=== PATIENT | female | born 1950 | race Caucasian/White ===

== ENCOUNTER 2022-09-15 10:12 | Inpatient (IN) ==
[2022-09-15] MEDS ORDERED: HYDROmorphone 1 MG/1 ML SYRINGE IV ONE ×2 (10:22→10:31)
[2022-09-15] MEDS ORDERED: Lactated Ringers 1000 ml BAG 1,000 ML IV ONE (10:33)
[2022-09-15] MEDS ORDERED: HYDROmorphone 0.5 MG/0.5 ML SYRINGE IV SLOW PU PRN (13:05)
[2022-09-15] MEDS ORDERED: hydrALAZINE 20 mg/ml 1 ML Vial IV IV SLOW PU ONE (13:06)
[2022-09-15 14:02] LABS: ABS Lymphocytes 1.5 10^3/ul (1.0-4.8); ABS Monocytes 0.6 10^3/ul (0-0.8); Eosinophil % 0.2 %; Hematocrit 39 % (35-47); Hemoglobin 12.8 g/dL (12.0-16.0); Lymphocyte % 16.3 %; Mean Corpuscular HGB Conc 33 g/dL (31-36); Mean Corpuscular Hemoglobin 30 pg (27-31); Mean Corpuscular Volume 91 fL (80-97); Mean Platelet Volume 7.3 fL (7.4-10.4); Platelet Count 378 10^3/uL (150-450); Red Blood Count 4.32 10^6 /uL (3.70-4.87); Red Cell Distribution Width 14 % (10-15); White Blood Count 9.1 10^3/uL (3.5-10.8)
[2022-09-15 14:11] LABS: INR 1.05 (0.88-1.18)
[2022-09-15 14:33] LABS: Albumin/Globulin Ratio 1.6 (1-3); Calcium 9.3 mg/dL (8.6-10.3); Creatinine, Serum 0.67 mg/dL (0.51-0.95); Globulin 2.5 g/dL (2-4); Potassium 3.8 mmol/L (3.5-5.0); Total Bilirubin 0.4 mg/dL (0.2-1.0); Total Protein 6.5 g/dL (6.4-8.9); eGFR CKD-EPI 91.7 (>60)
[2022-09-15] MEDS ORDERED: Ondansetron 4 mg VIAL 2 MG/ML 2 ml VIAL IV ONE (14:55)
[2022-09-15] MEDS ORDERED: KCL 10 MEQ/50 ML IVPREMIX 10 MEQ/50 ML BAG IV SCH (15:00)
[2022-09-15] MEDS ORDERED: Labetalol IV 5 MG/ML 20 ml VIAL IV PUSH PRN (15:02)
[2022-09-15] MEDS: Nicotine PATCH 7 MG/24 HR PATCH TRANSDERM SCH (15:05)
[2022-09-15] MEDS ORDERED: Dexamethasone IV 4 MG/ML VIAL 1 ml VIAL ONE ×2 (15:17→17:10)
[2022-09-15] MEDS ORDERED: Rocuronium 50 mg VIAL 10 mg/ml 5 ml VIAL (50 mg) ONE (15:17)
[2022-09-15] MEDS ORDERED: Propofol 10 MG/ML 20 ML BTL ONE (15:17)
[2022-09-15] MEDS ORDERED: Ondansetron 4 mg VIAL 2 MG/ML 2 ml VIAL ONE ×2 (15:17→16:07)
[2022-09-15] MEDS ORDERED: Lidocaine 2% PF 5 ML VIAL ONE (15:17)
[2022-09-15] MEDS ORDERED: Acetaminophen IV 1 GM/100ML 1,000 MG/100 ML BAG IV ONE (15:17)
[2022-09-15] MEDS ORDERED: fentaNYL 100 mcg/2 ml 50 MCG/ML VIAL ONE (15:32)
[2022-09-15] MEDS ORDERED: Midazolam 2 mg/2 ml VIAL 1 mg/ml 2 ml VIAL (2 mg) ONE (15:33)
[2022-09-15] MEDS ORDERED: ceFAZolin 2 GM in NS PREMIX 2 GM/100 ML BAG IVPB ONE (15:58)
[2022-09-15] MEDS ORDERED: HYDROmorphone 1 MG/1 ML SYRINGE IV SLOW PU PRN (16:00)
[2022-09-15] MEDS ORDERED: Famotidine IV 10 MG/ML 2 ml VIAL (20 mg) ONE (16:07)
[2022-09-15] MEDS ORDERED: Metoclopramide 5 MG/ML VIAL (10 mg) ONE (16:07)
[2022-09-15] MEDS ORDERED: Scopolamine 1 mg/72hr PATCH ONE (16:07)
[2022-09-15] MEDS ORDERED: Phenylephrine IV 10 MG/ML 1 ml VIAL ONE (16:46)
[2022-09-15] MEDS ORDERED: HYDROmorphone 0.5 MG/0.5 ML SYRINGE ONE ×2 (16:59→17:09)
[2022-09-15] MEDS ORDERED: Naloxone 0.4 mg VIAL 0.4 mg/ml 1 ml VIAL IV PRN (18:13)
[2022-09-15] MEDS ORDERED: fentaNYL 100 mcg/2 ml 50 MCG/ML VIAL IV PRN (18:13)
[2022-09-15] MEDS ORDERED: Prochlorperazine 5 mg/ml 2 ml VIAL (10 mg) ONE (20:38)
[2022-09-15] MEDS ORDERED: Senna TAB 8.6 mg TAB PO PRN (21:00)
[2022-09-15] MEDS: Acetaminophen IV 1 GM/100ML 600 MG/60 ML BAG IV PRN (23:42)
[2022-09-16] MEDS: KCL 10 MEQ/50 ML IVPREMIX 10 MEQ/50 ML BAG IV SCH ×2 (00:06→01:52)
[2022-09-16] MEDS: Ondansetron 4 mg VIAL 2 MG/ML 2 ml VIAL IV PRN ×2 (01:21→06:25)
[2022-09-16] MEDS: ceFAZolin 1 GM X 3 DOSES POST-OP Q8H (AddVan) IVPB SCH ×3 (01:28→19:34)
[2022-09-16 05:40] LABS: ABS Lymphocytes 1.5 10^3/ul (1.0-4.8); ABS Neutrophils 8.9 10^3/ul (1.5-7.7); Hematocrit 38 % (35-47); Hemoglobin 12.4 g/dL (12.0-16.0); Lymphocyte % 13.4 %; Mean Corpuscular HGB Conc 33 g/dL (31-36); Mean Corpuscular Hemoglobin 30 pg (27-31); Mean Corpuscular Volume 92 fL (80-97); Mean Platelet Volume 7.4 fL (7.4-10.4); Platelet Count 416 10^3/uL (150-450); Red Blood Count 4.13 10^6 /uL (3.70-4.87); Red Cell Distribution Width 15 % (10-15); White Blood Count 11.5 10^3/uL (3.5-10.8)
[2022-09-16 06:13] LABS: Calcium 9.6 mg/dL (8.6-10.3); Creatinine, Serum 1.24 mg/dL (0.51-0.95); Potassium 4.2 mmol/L (3.5-5.0); eGFR CKD-EPI 45.7 (>60)
[2022-09-16] MEDS ORDERED: Iodixanol (CONTRAST) 320 MG/ML 100 ML SDV IV ONE (06:59)
[2022-09-16] MEDS ORDERED: Prochlorperazine 5 mg/ml 2 ml VIAL (10 mg) IV ONE ×2 (08:11→12:10)
[2022-09-16] MEDS ORDERED: Polyethylene Glycol 3350 17 GM PACKET PO PRN (09:00)
[2022-09-16] MEDS: Prochlorperazine 5 mg/ml 2 ml VIAL (10 mg) IV PRN ×2 (09:44→19:31)
[2022-09-16] MEDS: Enoxaparin 30 MG/0.3 ML SYR SUBCUT SCH (09:54)
[2022-09-16] MEDS: Nicotine PATCH 7 MG/24 HR PATCH TRANSDERM SCH (10:34)
[2022-09-16] MEDS: Senna TAB 8.6 mg TAB PO SCH ×2 (10:39→22:54)
[2022-09-16] MEDS ORDERED: NS 0.9% 500 ml BAG 500 ML IV SCH (13:00)
[2022-09-16] MEDS: Acetaminophen IV 1 GM/100ML 600 MG/60 ML BAG IV PRN (18:41)
[2022-09-17] MEDS: Prochlorperazine 5 mg/ml 2 ml VIAL (10 mg) IV PRN ×2 (02:09→09:00)
[2022-09-17 07:01] LABS: Calcium 9.2 mg/dL (8.6-10.3); Creatinine, Serum 0.87 mg/dL (0.51-0.95); Potassium 4.5 mmol/L (3.5-5.0); eGFR CKD-EPI 69.9 (>60)
[2022-09-17 07:21] LABS: Hematocrit 33 % (35-47); Hemoglobin 10.8 g/dL (12.0-16.0); Mean Corpuscular HGB Conc 33 g/dL (31-36); Mean Corpuscular Hemoglobin 30 pg (27-31); Mean Corpuscular Volume 91 fL (80-97); Platelet Count 350 10^3/uL (150-450); Red Blood Count 3.65 10^6 /uL (3.70-4.87); Red Cell Distribution Width 14 % (10-15); White Blood Count 10.7 10^3/uL (3.5-10.8)
[2022-09-17] MEDS: Enoxaparin 30 MG/0.3 ML SYR SUBCUT SCH (09:00)
[2022-09-17] MEDS: Nicotine PATCH 7 MG/24 HR PATCH TRANSDERM SCH (09:00)
[2022-09-17] MEDS: Senna TAB 8.6 mg TAB PO SCH ×2 (09:00→21:18)
[2022-09-17] MEDS: Acetaminophen IV 1 GM/100ML 600 MG/60 ML BAG IV PRN (09:07)
[2022-09-17] MEDS ORDERED: Prochlorperazine 5 mg/ml 2 ml VIAL (10 mg) IV PRN (13:41)
[2022-09-17] MEDS ORDERED: Nicotine GUM 4MG FRUIT FLAVOR PO PRN (14:22)
[2022-09-17] MEDS: Nicotine PATCH 21 MG/24 HR PATCH TRANSDERM SCH (14:44)
[2022-09-17] MEDS: Ondansetron 4 mg VIAL 2 MG/ML 2 ml VIAL IV PRN ×2 (14:44→21:09)
[2022-09-17] MEDS: Bismuth Subsalicylate (BTL) 525 MG/30 ML (BULK BTL) PO PRN ×2 (16:45→22:57)
[2022-09-17] MEDS ORDERED: Lactated Ringers 1000 ml BAG 1,000 ML IV ONE (16:59)
[2022-09-18 05:46] LABS: Hematocrit 29 % (35-47); Hemoglobin 9.5 g/dL (12.0-16.0); Mean Corpuscular HGB Conc 33 g/dL (31-36); Mean Corpuscular Hemoglobin 30 pg (27-31); Mean Corpuscular Volume 90 fL (80-97); Mean Platelet Volume 7.6 fL (7.4-10.4); Platelet Count 340 10^3/uL (150-450); Red Cell Distribution Width 14 % (10-15); White Blood Count 11.9 10^3/uL (3.5-10.8)
[2022-09-18 06:31] LABS: Calcium 8.9 mg/dL (8.6-10.3); Creatinine, Serum 0.65 mg/dL (0.51-0.95); Magnesium 1.8 mg/dL (1.9-2.7); Phosphorus 2.7 mg/dL (2.5-5.0); Potassium 3.7 mmol/L (3.5-5.0); eGFR CKD-EPI 92.3 (>60)
[2022-09-18] MEDS ORDERED: Potassium Chlor 20 meq TAB.ER PO ONE (06:57)
[2022-09-18] MEDS ORDERED: Magnesium Sulfate IV 1GM/100ML 1 GM/100 ML BAG IV ONE (06:57)
[2022-09-18] MEDS ORDERED: Metoclopramide 5 MG/ML VIAL (10 mg) IV PRN (09:06)
[2022-09-18] MEDS: Nicotine PATCH 21 MG/24 HR PATCH TRANSDERM SCH (09:10)
[2022-09-18] MEDS: Enoxaparin 30 MG/0.3 ML SYR SUBCUT SCH (09:11)
[2022-09-18] MEDS: Senna TAB 8.6 mg TAB PO SCH ×2 (09:13→20:46)
[2022-09-18] MEDS: Bismuth Subsalicylate (BTL) 525 MG/30 ML (BULK BTL) PO PRN (09:14)
[2022-09-18] MEDS ORDERED: Acetaminophen IV 1 GM/100ML 600 MG/60 ML BAG IV PRN (09:25)
[2022-09-18] MEDS ORDERED: Bismuth Subsalicylate (BTL) 525 MG/30 ML (BULK BTL) PO PRN (09:42)
[2022-09-18] MEDS ORDERED: Scopolamine 1 mg/72hr PATCH TRANSDERM SCH (10:00)
[2022-09-18] MEDS: Polyethylene Glycol 3350 17 GM PACKET PO SCH (11:22)
[2022-09-18 13:40] LABS: Urine Appearance Cloudy; Urine Bilirubin Negative (Negative); Urine Blood 3+ (Negative); Urine Color Yellow; Urine Glucose Negative (Negative); Urine Ketones 1+ (Negative); Urine Nitrite Negative (Negative); Urine Protein 2+(100 mg/dL) (Negative); Urine Specific Gravity 1.017 (1.002-1.030); Urine Urobilinogen Negative (Negative)
[2022-09-18 13:45] LABS: Urine Bacteria Absent (Absent); Urine Red Blood Cell 3+(>10/hpf) (Absent); Urine Squamous Epithelial Cell Present (Absent); Urine White Blood Cell 3+(>20/hpf) (Absent)
[2022-09-18] MEDS: Sulfamethox/Trimethoprim DS TAB 800/160 mg PO SCH (22:10)
[2022-09-19] MEDS: Nicotine PATCH 21 MG/24 HR PATCH TRANSDERM SCH (08:14)
[2022-09-19] MEDS: Senna TAB 8.6 mg TAB PO SCH (08:25)
[2022-09-19] MEDS: Sulfamethox/Trimethoprim DS TAB 800/160 mg PO SCH (08:25)
[2022-09-19] MEDS: Polyethylene Glycol 3350 17 GM PACKET PO SCH (08:25)
[2022-09-19] MEDS: Enoxaparin 30 MG/0.3 ML SYR SUBCUT SCH (08:27)
[2022-09-19 11:52] VITALS: BP 116/78
== END 2022-09-19 14:25 | disposition home or self-care (01) | DRG 482 ==
LOC: ED 10:12 → EDHOLD 13:00 → SUATTDRO 13:00 → EDHOLD 15:27 → SSU 22:09
PROVIDERS: ADMIT Internal Medicine; ATTEND Hospitalist